=== PATIENT | female | born 1975 | race Caucasian/White ===

== ENCOUNTER 2021-12-21 14:11 | Outpatient (CLI) | payer BC | END 2021-12-21 14:12 | disposition home or self-care (01) | LOC: CSHULT 14:11 | PROVIDERS: ATTEND Otolaryngology Plastic Surgery within the Head & Neck | DX: E04.9 Nontoxic goiter, unspecified (principal); E04.2 Nontoxic multinodular goiter | CPT/HCPCS: 76536 ==

== ENCOUNTER 2023-03-30 09:39 | Outpatient (CLI) | payer BC | END 2023-03-30 09:40 | disposition home or self-care (01) | LOC: CSHULT 09:39 | PROVIDERS: ATTEND Otolaryngology Plastic Surgery within the Head & Neck | DX: E04.9 Nontoxic goiter, unspecified (principal); E04.2 Nontoxic multinodular goiter | CPT/HCPCS: 76536 ==

== ENCOUNTER 2023-08-04 12:57 | Outpatient (CLI) | payer BC ==
[2023-08-04 13:41] LABS: Hematocrit 44.3 % (34.9-44.5)
== END 2023-08-04 12:58 | disposition home or self-care (01) ==
LOC: CSHLAB 12:57
PROVIDERS: ATTEND Otolaryngology Otolaryngic Allergy
DX: Z01.812 Encounter for preprocedural laboratory examination (principal); E04.1 Nontoxic single thyroid nodule
CPT/HCPCS: 85014